=== PATIENT | male | born 1960 | race African-American/Black ===

== ENCOUNTER 2020-05-19 12:50 | Emergency (ER) | payer OTHER ==
[~2020-05-19] VITALS: Ht 177.8 cm; Wt 90.0 kg
[2020-05-19] MEDS ORDERED: IBUPROFEN 600MG TABLET PO ONE (13:30)
[2020-05-19 15:53] VITALS: BP 174/94
== END 2020-05-19 15:54 | disposition home or self-care (01) ==
LOC: ER 13:12
DX: S89.92XA Unspecified injury of left lower leg, initial encounter (principal); W50.2XXA Accidental twist by another person, initial encounter; Y93.01 Activity, walking, marching and hiking; Y92.89 Other specified places as the place of occurrence of the external cause; Y99.8 Other external cause status
CPT/HCPCS: 73562; 99283; L1830